=== PATIENT | female | born 1960 | race Caucasian/White ===

== ENCOUNTER 2016-10-21 12:22 | Day surgery (SDC) | payer BC ==
[~2016-10-21] VITALS: Ht 160 cm; Wt 89.8 kg
[~2016-10-21 12:22] MED LIST: ASPI-664 PO; CHOL2000 PO; FENO160T13 PO; SIMV20TA6 PO; SITA1TAB3 PO
[2016-10-21 12:59] VITALS: Ht 160 cm; Wt 89.8 kg
[2016-10-21 13:34] VITALS: BP 120/67; PULSE 72; RESP 16
[2016-10-21 13:39] VITALS: BP 120/67; PULSE 72; RESP 16
[2016-10-21] MEDS ORDERED: PROPOFOL 40 ML ONE (13:47)
[2016-10-21] MEDS ORDERED: MIDAZOLAM 1 MG/ML 2 ML INJ ONE ×2 (13:48)
--- NOTE | 2016-10-21 14:36 | GILP ---
DATE OF PROCEDURE: PROCEDURE: Esophagogastroduodenoscopy with biopsies. BRIEF HISTORY AND INDICATIONS: The patient is being evaluated for dyspepsia. PREMEDICATION: Monitored anesthesia care by the anesthesiologist. SURGEON: Robert Castellano MD. INSTRUMENT USED: Olympus panendoscope. TECHNIQUE: After informed consent, with the patient/relatives understanding the procedure, its indic ations, potential risks and complications, including but not limited to: allergic reaction, bleeding , perforation or infection, and after all pertinent questions were answered to the patients satisfac tion, the patient/relatives signed witnessed informed consent. Following this, premedication was administered slowly IV push under careful cardiovascular and respi ratory monitoring with pulse oximetry, automatic blood pressure and shelter monitor. Once the sedative effect was achieved the patient was place in the left lateral decubitus, the panen doscope was introduced and advanced under visual control. Careful examination of the upper gastrointestinal tract, both on insertion as well as withdrawal of the instrument disclosed the following findings: ESOPHAGUS: The distal esophagus shows erythema and edema of the mucosa of a moderate degree. STOMACH: Upon entrance to the stomach, air was insufflated, the gastric danielle distended normally. There is erythema and edema of the mucosa of a moderate degree. Biopsies were obtained to rule out H. pylori infection. PYLORUS: The pylorus appears patent and within normal limits, with no evidence of gastric outlet obs truction. DUODENUM: The duodenal mucosa was carefully examined in the duodenal bulb as well as the second port ion of the duodenum and appears unremarkable with no evidence of duodenitis, ulcer or neoplasm. The instrument was then withdrawn, the patient tolerated the procedure well and was transfer out of the endoscopy suite awake, and in good condition to continue recovery under observation IMPRESSION: 1. Moderate distal esophagitis. 2. Moderate gastritis. Rule out Helicobacter pylori infection. PLAN: The patient will be treated with PPIs, i.e. omeprazole 40 mg daily, and further recommendatio ns will depend on the patient's clinical course, as well as review of biopsies. Dictated By: ROBERT CASTELLANO MS/ROHAN Conf#: [id number] DID#: [id number]
[2016-10-21 14:50] VITALS: BP 106/74; PULSE 68; RESP 16
--- NOTE | 2016-10-21 15:07 | GILP ---
DATE OF PROCEDURE: 10/21/2016 DATE: 10/21/2016. PROCEDURE PERFORMED: Colonoscopy to cecum. BRIEF HISTORY AND INDICATIONS: The patient is being evaluated for colorectal cancer screening. SURGEON: Robret Castellano MD. INSTRUMENT USED: Olympus colonoscope. PREPARATION: Poor, with 30% of the colon obscure. PREMEDICATION: Monitored anesthesia care by anesthesiologist. TECHNIQUE: After informed consent, with the patient/relatives understanding the procedure, its indic ations potential risks and complications, including but not limited to: allergic reaction, bleeding, perforation, infection, missed lesions and after all pertinent questions were answered to the patie nt's satisfaction, the patient/relatives signed the witnessed informed consent. Following this, premedication was administered slowly IV push by under careful cardiovascular and re spiratory monitoring with pulse oximetry, automatic blood pressure and mortuary beautician. Once the sedativ e effect was achieved, the patient was placed in the left lateral decubitus position, digital rectal examination was performed. The colonoscope was then introduced and advanced under visual control th roughout all segments of the colon including: the rectum, sigmoid, descending colon, splenic flexure , transverse colon, hepatic flexure, ascending colon and finally reaching the cecum which was clearl y identified by transillumination, finger indentation and the ileocecal valve. Careful examination o f the mucosa of the lower gastrointestinal tract both on insertion as well as withdrawal of the inst rument disclosed the following findings: Rectal Examination: No evidence of perirectal disease, no masses. Colonic Mucosa: The colonic mucosa unremarkable with limitations of poor preparation. The ileoceca l valve was clearly identified and appears unremarkable. The instrument was withdrawn. On withdraw al of the instrument, no additional abnormalities are noted with exception of moderate sized interna l hemorrhoids. 1. Poor preparation with 30% of the colon obscured. Normal examined mucosa limited due to poor pre paration. 2. Moderate size internal hemorrhoids. PLAN: The patient will be followed up as an outpatient. Early reevaluation in 3 years is recommend ed given the poor preparation encountered today. Annual Hemoccult stool testing is also recommended . Dictated By: ROBERT CASTELLANO MS/ROHAN Conf#: [id number] DID#: [id number]
== END 2016-10-21 16:26 | disposition home or self-care (01) ==
LOC: GIL 12:22
PROVIDERS: ATTEND Internal Medicine Gastroenterology
DX: Z12.11 Encounter for screening for malignant neoplasm of colon (principal); K64.8 Other hemorrhoids; K20.8 Other esophagitis; K29.70 Gastritis, unspecified, without bleeding; E11.9 Type 2 diabetes mellitus without complications; E66.9 Obesity, unspecified; Z68.35 Body mass index [BMI] 35.0-35.9, adult
CPT/HCPCS: 43239; 45378; 82962; 88305; 88312; J2250; Z7610

== ENCOUNTER 2016-11-20 17:19 | Emergency (ER) | payer BC ==
[~2016-11-20] VITALS: Wt 92.5 kg
[~2016-11-20 17:19] MED LIST changes: -CHOL2000 PO; -FENO160T13 PO; -SIMV20TA6 PO
[2016-11-20] MEDS ORDERED: HYDROmorphONE 1 MG/ML SYG IV STA (20:40)
[2016-11-20] MEDS ORDERED: ONDANSETRON 4 MG INJ IV STA ×2 (20:40→23:19)
[2016-11-20 21:02] LABS: ADD SCAN DIFF NO
[2016-11-20 21:05] LABS: BASOPHILS % 0.4 % (0.0-2.0); EOSINOPHILS # 0.1 10^3/ul (0.0-0.5); EOSINOPHILS % 1.5 % (0.0-7.0); HEMATOCRIT 38.1 % (37.0-47.0); HEMOGLOBIN 12.6 g/dl (12.0-16.0); LYMPHOCYTES # 3.3 10^3/ul (0.8-2.9); LYMPHOCYTES % 42.2 % (15.0-51.0); MEAN CORPUSCULAR HEMOGLOBIN 31.3 pg (29.0-33.0); MEAN CORPUSCULAR HGB CONC 33.1 g/dl (32.0-37.0); MEAN CORPUSCULAR VOLUME 94.5 fl (82.0-101.0); MEAN PLATELET VOLUME 9.8 fl (7.4-10.4); MONOCYTE # 0.6 10^3/ul (0.3-0.9); NEUTROPHIL # 3.8 10^3/ul (1.6-7.5); NEUTROPHILS % 48.5 % (39.0-77.0); PLATELET COUNT 248 10^3/UL (140-415); RED BLOOD COUNT 4.03 10^6/ul (4.20-5.40); WHITE BLOOD COUNT 7.9 10^3/ul (4.8-10.8)
[2016-11-20 21:16] LABS: ALBUMIN 4.2 g/dl (3.3-4.9)
[2016-11-20 21:17] LABS: POTASSIUM 3.9 mmol/L (3.5-5.1)
[2016-11-20 21:19] LABS: ALBUMIN/GLOBULIN RATIO 1.07; CREATININE 0.52 mg/dl (0.44-1.00); TOTAL PROTEIN 8.1 g/dl (6.1-8.1)
[2016-11-20 21:20] LABS: CALCIUM 9.1 mg/dl (8.4-10.2)
[2016-11-20] MEDS ORDERED: IODIXANOL LOCM 100 ML BTL ONE (21:52)
[2016-11-20] MEDS ORDERED: SOD CHLORIDE 0.9% 100 ML ONE (21:52)
--- NOTE | 2016-11-20 22:25 | RADRPT ---
PROCEDURE: CT Abdomen and Pelvis with Contrast CLINICAL INDICATION: Abdominal pain TECHNIQUE: Transaxial images were obtained through the abdomen and pelvis on a multi-slice scanner following the intravenous administration of iodinated contrast. No oral contrast had previously be en given. Sagittal and coronal re-formations were subsequently reconstructed. One or more of the following dose reduction techniques were used: - Automated exposure control. - Adjustment of the mA and/or kV according to patient size. - Use of iterative reconstruction technique. Radiation dose: CTDIvol = 21.29 mGy; DLP = 1168.05 mGy-cm. COMPARISON: No prior studies are available for comparison. FINDINGS: Lung bases: The visualized lung bases appear unremarkable. Liver: The liver is borderline enlarged but no focal lesion is evident. The hepatic and portal vein s are patent. Gallbladder: Surgical marry are seen in the gallbladder fossa. Bile ducts: The intra and extrahepatic bile ducts are normal in caliber. Pancreas: Appears normal with no mass or inflammation evident. Spleen: Normal in size with no focal lesion. Adrenals: Normal with no mass identified. Kidneys, ureters and bladder: The kidneys enhance normally and are normal in size and there is no ma ss, pathological calcification, or hydronephrosis evident. There is no perinephric stranding. The ur eters are normal in caliber and no ureteroliths are identified. The bladder appears unremarkable. Reproductive organs: The uterus is absent. Stomach, bowel, and mesentery: The stomach is moderately distended with liquid and food debris. The re is mild distension of segments of small bowel fairly diffusely compatible with ileus. Substantia l stool is seen to the colon. There is no evidence of bowel obstruction or inflammation. Appendix: A normal vermiform appendix is evident. Peritoneum: No free intraperitoneal fluid or air is identified. Aorta: Normal in caliber with no aneurysmal dilatation. IVC: Unremarkable. Lymph nodes: No pathologically enlarged nodes are identified. Osseous structures: Diffuse degenerative disk changes are evident with mild diffuse degenerative spo ndylosis seen on the endplates with straightening of the normal lordotic curvature to the lumbar spi ne. IMPRESSION: 1. Borderline hepatomegaly with no focal lesion. 2. Status post cholecystectomy without bile duct dilatation or pancreatic pathology. 3. Status post hysterectomy with no adnexal mass. 4. The bowel gas pattern reflects an ileus. Stool is seen diffusely through the colon, but there i s no evidence of bowel obstruction or inflammation and the vermiform appendix appears normal. 5. No evidence of urinary outflow obstruction or ureterolithiasis. 6. Diffuse degenerative disk and endplate changes seen to the spine with straightening of the saul l lordotic curvature to the lumbar spine. Physician Anitha Date Time Electronically viewed and signed by Latoya Quinones Physician on 11/20/2016 22:25 /
[2016-11-20] MEDS ORDERED: morphine 10 MG INJ IV ONE (23:30)
[2016-11-20] MEDS ORDERED: POLY17PO6 PO (23:37)
[2016-11-20] MEDS ORDERED: HYDR-906 PO (23:37)
[2016-11-20] MEDS ORDERED: DICY10CA60 PO (23:37)
--- NOTE | 2016-11-20 23:44 | ERD ---
ER Documentation Chief Complaint Date/Time DATE: 11/20/16 TIME: 23:40 Chief Complaint R LOWER ABD PAIN RADIATING TO BACK, ON AND OFF, HAD SHINGLES ON SAME SIDE HPI This is a 56-year-old female complaining of right abdominal pain. The patient has had this pain for 2 weeks and started the same time that shingles had shown up on her right flank covering her right flank to her right mid abdomen. She says the pain is above the shingles area. The patient saw her doctor and is currently taking acyclovir, steroids, Ultram, gabapentin. Patient complains of pain about the shingles site located in the right upper quadrant and mid upper abdomen. She says nothing makes the pain worse or better including food. The patient has had her gallbladder removed already. The patient states that she has not constipated she is not vomiting or fever. She says the pain sometimes radiates to the right back. Pain is described as dull and constant ROS All systems reviewed and are negative except as per history of present illness. Medications Home Meds Active Scripts Polyethylene Glycol* (Miralax*) 17 Gm Powd.pack, 17 GM PO DAILY, #5 PACKET Prov:DEEPAK CLEMENT DO 11/20/16 Dicyclomine Hcl* (Bentyl*) 10 Mg Capsule, 20 MG PO QID, #30 CAP Prov:DEEPAK CLEMENT DO 11/20/16 Hydrocodone/Acetaminophen ([place] 5-325 Tablet) 1 Each Tablet, 1 TAB PO Q6H Y for PAIN, #20 TAB Prov:DEEPAK CLEMENT DO 11/20/16 Reported Medications Sitagliptin Phos-Metformin Hcl (Janumet) 50-500 Mg Tablet, 1 TAB PO WITH BREAKFAST DINNE, #60 TAB 11/10/15 Aspirin (Aspirin Low Dose) 81 Mg Tablet.dr, 81 MG PO DAILY, #30 TAB 11/10/15 Allergies Allergies: Coded Allergies: Penicillins (Verified Allergy, Severe, 10/21/16) RASH amoxicillin (Unverified Allergy, Severe, 10/21/16) RASH clavulanic acid (Unverified Allergy, Severe, 10/21/16) RASH ibuprofen (Verified Allergy, Severe, 10/21/16) face swelling naproxen (Verified Allergy, Severe, 10/21/16) RASH rofecoxib (Verified Allergy, Severe, 10/21/16) RASH ondansetron (Unverified Allergy, Unknown, 11/20/16) Uncoded Allergies: MEDICATION FOR NAUSEA, UNRECALLED. (Allergy, Severe, 11/11/15) PATIENT STATES ALLERGIC W/ NAUSEA MEDICATION, HOWEVER CAN NOT RECALL WHICH DRUG IS IT. PMhx/Soc History of Surgery: Yes (kobe, umb hernia, rotator cuff repair, lap choley) Anesthesia Reaction: No Hx Neurological Disorder: No Hx Respiratory Disorders: No Hx Cardiac Disorders: No Hx Psychiatric Problems: No Hx Miscellaneous Medical Probl: Yes (DM) Hx Alcohol Use: Yes (occasionally) Hx Substance Use: No Hx Tobacco Use: Yes (8-10 cig/day) Smoking Status: Current every day smoker FmHx Family History: No coronary disease Physical Exam Vitals Vital Signs Date Time Temp Pulse Resp B/P Pulse Ox O2 Delivery O2 Flow Rate FiO2 11/20/16 20:28 98.3 73 20 113/67 100 Room Air 11/20/16 17:29 97.2 87 17 106/68 97 Physical Exam Const: Well-developed, well-nourished Head: Atraumatic, normocephalic Eyes: Normal Conjunctiva, PERRLA, EOMI, normal sclera, no nystagmus ENT: Normal External Ears, Nose and Mouth, moist mucus membranes. Neck: Full range of motion. No meningismus, no lymphadenopathy. Resp: Clear to auscultation bilaterally, no wheezing, rhonchi, rales Cardio: Regular rate and rhythm, no murmurs, S1 S2 present Abd: Soft, mild pain located to the right upper quadrant and right midabdomen, non distended. Normal bowel sounds, no guarding or rebound, no pulsitile abdominal masses or bruits Skin: There is a dried shingles rash to the right mid flank wrapping around to the right midabdomen following likely dermatomes of T8 and 9 or T9 and 10 Back: No midline or flank tenderness Ext: No cyanosis, or edema, FROM x 4, normal inspection, neurovascularly intact x 4 Neur: Awake and alert, STR 5/5 x 4, sensation intact x 4, no focal findings, cerebellum intact Psych: Normal Mood and Affect Result Diagram: 11/20/16204911/20/162049 Results 24 hrs Laboratory Tests Test 11/20/16 20:50 Alanine Aminotransferase (ALT/SGPT) 30IU/L Albumin 4.2g/dl Albumin/Globulin Ratio 1.07 Alkaline Phosphatase 147IU/L Anion Gap 16 Aspartate Amino Transf (AST/SGOT) 32IU/L Basophils # 0.010^3/ul Basophils % 0.4% Blood Urea Nitrogen 9mg/dl Calcium Level 9.1mg/dl Carbon Dioxide Level 28mmol/L Chloride Level 101mmol/L Creatinine 0.52mg/dl Direct Bilirubin 0.00mg/dl Eosinophils # 0.110^3/ul Eosinophils % 1.5% Globulin 3.90g/dl Glucose Level 159mg/dl Hematocrit 38.1% Hemoglobin 12.6g/dl Indirect Bilirubin 0.0mg/dl Lipase 60U/L Lymphocytes # 3.310^3/ul Lymphocytes % 42.2% Mean Corpuscular Hemoglobin 31.3pg Mean Corpuscular Hemoglobin Concent 33.1g/dl Mean Corpuscular Volume 94.5fl Mean Platelet Volume 9.8fl Monocytes # 0.610^3/ul Monocytes % 7.0% Neutrophils # 3.810^3/ul Neutrophils % 48.5% Nucleated Red Blood Cells # 0.010^3/ul Nucleated Red Blood Cells % 0.0/100WBC Platelet Count 88251^3/UL Potassium Level 3.9mmol/L Red Blood Count 4.0310^6/ul Red Cell Distribution Width 13.0% Sodium Level 141mmol/L Total Bilirubin 0.0mg/dl Total Protein 8.1g/dl White Blood Count 7.910^3/ul Current Medications Medications (Trade) Dose Ordered Sig/Leah Route PRN Reason Start Time Stop Time Status Last Admin Dose Admin Hydromorphone HCl (Dilaudid) 1 mg ONCE STAT IV 11/20/16 20:40 11/20/16 20:42 DC 11/20/16 20:57 Ondansetron HCl (Zofran Inj) 4 mg ONCE STAT IV 11/20/16 20:40 11/20/16 20:42 DC IV Flush 10 ml 10 ml STK-MED ONCE .ROUTE 11/20/16 21:52 11/20/16 21:53 DC 11/20/16 22:06 Sodium Chloride (NS) 100 ml @ STK-MED ONCE .ROUTE 11/20/16 21:52 11/20/16 21:53 DC 11/20/16 22:06 Iodixanol (Visipaque Locm) 100 ml STK-MED ONCE .ROUTE 11/20/16 21:52 11/20/16 21:53 DC 11/20/16 22:07 Morphine Sulfate (morphine) 6 mg ONCE ONCE IV 11/20/16 23:30 11/20/16 23:31 DC Ondansetron HCl (Zofran Inj) 4 mg ONCE STAT IV 11/20/16 23:19 11/20/16 23:21 DC Procedures/MDM PROCEDURE: CT Abdomen and Pelvis with Contrast CLINICAL INDICATION: Abdominal pain TECHNIQUE: Transaxial images were obtained through the abdomen and pelvis on a multi-slice scanner following the intravenous administration of iodinated contrast. No oral contrast had previously been given. Sagittal and coronal re- formations were subsequently reconstructed. One or more of the following dose reduction techniques were used: - Automated exposure control. - Adjustment of the mA and/or kV according to patient size. - Use of iterative reconstruction technique. Radiation dose: CTDIvol = 21.29 mGy; DLP = 1168.05 mGy-cm. COMPARISON: No prior studies are available for comparison. FINDINGS: Lung bases: The visualized lung bases appear unremarkable. Liver: The liver is borderline enlarged but no focal lesion is evident. The hepatic and portal veins are patent. Gallbladder: Surgical marry are seen in the gallbladder fossa. Bile ducts: The intra and extrahepatic bile ducts are normal in caliber. Pancreas: Appears normal with no mass or inflammation evident. Spleen: Normal in size with no focal lesion. Adrenals: Normal with no mass identified. Kidneys, ureters and bladder: The kidneys enhance normally and are normal in size and there is no mass, pathological calcification, or hydronephrosis evident. There is no perinephric stranding. The ureters are normal in caliber and no ureteroliths are identified. The bladder appears unremarkable. Reproductive organs: The uterus is absent. Stomach, bowel, and mesentery: The stomach is moderately distended with liquid and food debris. There is mild distension of segments of small bowel fairly diffusely compatible with ileus. Substantial stool is seen to the colon. There is no evidence of bowel obstruction or inflammation. Appendix: A normal vermiform appendix is evident. Peritoneum: No free intraperitoneal fluid or air is identified. Aorta: Normal in caliber with no aneurysmal dilatation. IVC: Unremarkable. Lymph nodes: No pathologically enlarged nodes are identified. Osseous structures: Diffuse degenerative disk changes are evident with mild diffuse degenerative spondylosis seen on the endplates with straightening of the normal lordotic curvature to the lumbar spine. IMPRESSION: 1. Borderline hepatomegaly with no focal lesion. 2. Status post cholecystectomy without bile duct dilatation or pancreatic pathology. 3. Status post hysterectomy with no adnexal mass. 4. The bowel gas pattern reflects an ileus. Stool is seen diffusely through the colon, but there is no evidence of bowel obstruction or inflammation and the vermiform appendix appears normal. 5. No evidence of urinary outflow obstruction or ureterolithiasis. 6. Diffuse degenerative disk and endplate changes seen to the spine with straightening of the normal lordotic curvature to the lumbar spine. Physician Anitha Date Time Electronically viewed and signed by Latoya Quinones Physician on 11/20/2016 22:25 RH/ CC: DEEPAK CLEMENT DO Patient will be given some MiraLAX to help eliminate the stool. The patient says she is having bowel movements daily and is not having difficulty in this area. No evidence of any pathology on her labs. No intrahepatic dilatation. Pain is likely from nerve pain from the shingles. Will add some GI meds just in case including Bentyl Departure Diagnosis: Primary Impression: Abdominal pain Abdominal location: upper abdomen, unspecified Qualified Code: R10.10 - Pain of upper abdomen Additional Impression: Shingles Herpes zoster complications: without complications Qualified Code: B02.9 - Herpes zoster without complication Condition: Stable Patient Instructions: Shingles (Herpes Zoster), Abdominal Pain, Unknown Cause, (Female) DEEPAK CLEMENT DO Nov 20, 2016 23:43
[2016-11-21 00:25] VITALS: BP 96/50; PULSE 64; RESP 20; TEMP 98.2
== END 2016-11-21 01:12 | disposition home or self-care (01) ==
LOC: E/R 17:19
DX: R10.11 Right upper quadrant pain (principal); B02.9 Zoster without complications; E11.9 Type 2 diabetes mellitus without complications; F17.210 Nicotine dependence, cigarettes, uncomplicated; Z79.82 Long term (current) use of aspirin; Z79.84 Long term (current) use of oral hypoglycemic drugs
CPT/HCPCS: 36415; 74177; 80053; 83690; 85025; 96374; 96375; J1170; J2270; J2405; Q9967; Z7502; Z7610